=== PATIENT | male | born 2000 | race African-American/Black ===

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

== ENCOUNTER 2019-04-27 16:29 | Emergency (ER) | payer MEDICAID ==
[~2019-04-27] VITALS: Ht 180.3 cm; Wt 86.2 kg
--- NOTE | 2019-04-27 16:31 | NUR ---
PATIENT BIBA TO BED 8 AT THIS TIME.
[2019-04-27 16:35] VITALS: BP 155/61
--- NOTE | 2019-04-27 16:51 | NUR ---
18/M ROMERO CAME IN DUE TO SEIZURE. PEER PT. WITNESSED SEIZURE. ONSET AROUND 1500. HX OF SEIZURES PT STATED HAS HAPPENED 2-3 TIMES. LAST OCCURANCE ON December. PT STATES THAT SEIZURES HAPPEN WHEN HE DRINKS ALCOHOL OR USES COCAINE. PT DRANK TODAY AND COCAINE USAGE STATES WAS A COUPLE DAYS AGO. ALOX3 NO DIZINESS, EYES ARE SLUGISH 4MM, PERRLA, NO H/A, SEIZURE LASTED ABOUT A MINUTE, ABASIONON APEX OF HEAD, NO PAIN REPORTED. STRENGHT EQUAL BILATERLLY ON UPPER AND LOWER EXTREMITIES. PMHX: SEIZURES RX: KEPRA
[2019-04-27] MEDS ORDERED: NACL 0.9% 1,000 ML IV ONE (17:00)
[2019-04-27] MEDS ORDERED: levETIRAcetam 500 MG TAB PO ONE (17:00)
[2019-04-27] MEDS ORDERED: LORazepam 2 MG/ML VIAL IVP ONE (17:00)
--- NOTE | 2019-04-27 17:01 | NUR ---
DR KRAUSE AT BEDSIDE
--- NOTE | 2019-04-27 17:20 | NUR ---
IV INFILTRATED, SWELLING AT IV SITE, PT REPORTS PAIN AT 8/10, FIRM TO TOUCH, STOPPED BOLUS OF NS AND REMOVED IV, STARTED NEW IV IN RT AC, AND RESUMED BOLUS
--- NOTE | 2019-04-27 18:00 | NUR ---
PT IS PENDING DISCHARGE. PT WAITING FOR HIS RIDE AT THIS TIME AND WILL WAIT IN [facility] UNTIL RIDE ARRIVES PER DR. KRAUSE. PT WILL BE MONITORED.
[2019-04-27 18:09] VITALS: BP 121/71
--- NOTE | 2019-04-27 18:09 | NUR ---
Patient discharged with v/s stable. Written and verbal after care instructions given and explained. Patient alert, oriented and verbalized understanding of instructions. Ambulatory with steady gait. All questions addressed prior to discharge. ID band removed. Patient advised to follow up with PMD. Rx of KEYOSELIN given. Patient educated on indication of medication including possible reaction and side effects. Opportunity to ask questions provided and answered.
== END 2019-04-27 18:09 | disposition home or self-care (01) ==
LOC: MED 16:29
DX: R56.9 Unspecified convulsions (principal); I10 Essential (primary) hypertension; F19.10 Other psychoactive substance abuse, uncomplicated; F17.210 Nicotine dependence, cigarettes, uncomplicated
CPT/HCPCS: 82948; 96374; 99283; J2060; J7030

== ENCOUNTER 2019-07-01 11:29 | Emergency (ER) | payer MEDICAID ==
[~2019-07-01] VITALS: Ht 180.3 cm; Wt 75.7 kg
[2019-07-01 12:01] VITALS: BP 122/53
--- NOTE | 2019-07-01 12:06 | NUR ---
PT AMBULATED TO ED CHAIR B AWAITING FOR BED. BRIAN AND MADE AWRAE OF PT STATUS.
--- NOTE | 2019-07-01 12:21 | NUR ---
18 Y/O M C/C SEIZURE X 1 HOUR AGO. PER PT SZ WITNESSED BY FRIEND. PER PT HAS RAN OUT OF MEDICATION AND BELIEVES IS THE CAUSE OF SZ. PT ON KEPPRA AND HAS NOT TAKEN MEDICATION FOR PAST TWO DAYS. PT NKA. HX OF SZ, HEART MURMUR. RX KEPPRA. NO N/V/D. SZ PRECAUTIONS IN PLACE. RAILS PADDED. BOTH RAILS UP.
[2019-07-01] MEDS ORDERED: ONDANSETRON 4 MG/2 ML VIAL IVP ONE (12:30)
[2019-07-01] MEDS ORDERED: KETOROLAC 30 MG/ML VIAL IVP ONE (12:30)
[2019-07-01] MEDS ORDERED: levETIRAcetam 1,000 MG in NACL 0.9% 100 ML IV ONE (12:30)
[2019-07-01] MEDS ORDERED: levETIRAcetam 100 MG/ML VIAL IV ONE (13:02)
[2019-07-01 14:16] VITALS: BP 127/72
== END 2019-07-01 14:16 | disposition home or self-care (01) ==
LOC: MED 11:29
DX: G40.89 Other seizures (principal); F17.210 Nicotine dependence, cigarettes, uncomplicated; F12.10 Cannabis abuse, uncomplicated; Z86.79 Personal history of other diseases of the circulatory system
CPT/HCPCS: 70450; 96365; 96375; 99284; J1885; J1953; J2405

== ENCOUNTER 2020-10-17 07:39 | Emergency (ER) | payer MEDICAID ==
[~2020-10-17] VITALS: Ht 175.3 cm; Wt 73.9 kg
--- NOTE | 2020-10-17 07:39 | NUR ---
Patient BIBA ALS, transferred to bed 9. RN evaluating the patient at bedside.
[2020-10-17 07:45] VITALS: BP 114/45
--- NOTE | 2020-10-17 07:49 | NUR ---
Dr. Leslie is evaluating the patient at bedside.
--- NOTE | 2020-10-17 07:53 | NUR ---
19 Y/O MALE ROMERO WAS WALKING WITH A FRIEND WHO WITNESSED FALL AFTER PT STATING HE "FELT SHAKY". FRIEND DID NOT ATTEMPT TO CATCH FRIEND FELL, SMALL LAC NOTED TO HEAD AND SOME ABRASIONS, NO ACTIVE BLEEDING. PER EMT THEY ATTEMPTED TO START AN IV LINE AND PT VOMITED ONE TIME, GIVEN 4MG ZOFRAN ODT. BLOOD SUGAR 160 ON ARRIVAL. PT IS A&OX4. PMH: EPILEPSY RX: KEPPRA 500MG BID NKA
[2020-10-17] MEDS ORDERED: levETIRAcetam 1,000 MG in NACL 0.9% 100 ML IV ONE (07:55)
[2020-10-17] MEDS ORDERED: LORazepam 2 MG/ML VIAL IVP ONE (07:55)
--- NOTE | 2020-10-17 08:32 | NUR ---
Spoke with pt family in lobby, number and name left at front when pt is ready for d/c.
--- NOTE | 2020-10-17 08:57 | NUR ---
Pt arm bent, re-educated to keep arm straight for Keppra IVPB at 220mL/hr.
--- NOTE | 2020-10-17 11:06 | NUR ---
Pt resting comfortably, seizure precautions in place, visible equal rise and fall of chest VSS, will continue to monitor.
[2020-10-17] MEDS ORDERED: LEVE500T9 PO (11:43)
--- NOTE | 2020-10-17 12:15 | NUR ---
IV D/C 2X2 GAUZE PLACED TO IV SITE.
--- NOTE | 2020-10-17 12:20 | NUR ---
ATTEMPTED TO CALL PATIENTS FRIEND FIORDALIZA, NO ANSWER AND UNABLE TO LEAVE VOICEMAIL
[2020-10-17 12:21] VITALS: BP 124/57
--- NOTE | 2020-10-17 12:21 | NUR ---
Patient discharged with v/s stable. Written and verbal after care instructions given and explained. Patient alert, oriented and verbalized understanding of instructions. Ambulatory with steady gait. All questions addressed prior to discharge. ID band removed. Patient advised to follow up with PMD. Rx of keppra 500mg po bid given. Patient educated on indication of medication including possible reaction and side effects. Opportunity to ask questions provided and answered.
== END 2020-10-17 12:20 | disposition home or self-care (01) ==
LOC: MED 07:39
DX: G40.909 Epilepsy, unspecified, not intractable, without status epilepticus (principal); F17.290 Nicotine dependence, other tobacco product, uncomplicated; F12.90 Cannabis use, unspecified, uncomplicated
CPT/HCPCS: 96365; 96375; 99285; J1953; J2060